=== PATIENT | male | born 1985 | race Caucasian/White ===

== ENCOUNTER 2022-05-29 02:45 | Emergency (ER) | payer OTHER ==
[2022-05-29 02:54] VITALS: BP 155/78; PULSE 111; RESP 22; TEMP 98.2
--- NOTE | 2022-05-29 02:58 | ED ---
Skin/Abscess/FB HPI - General Chief complaint: Skin/Abscess/Foreign Body Stated complaint: Abscess on left leg Time Seen by Provider: 05/29/22 02:57 Source: patient, RN notes reviewed Mode of arrival: ambulatory Limitations: no limitations - History of Present Illness Initial comments: Patient presents with a boil on his left lower leg which has been there for several days. Patient also has a healing boil on the medial aspect of the leg. Patient denying any fever. Denies any chills. No other symptomology. Patient has not been getting any drainage but has been treating at home with warm compresses. No known history of MRSA. No headache, no fever or chills, no changes in vision or hearing, no sore throat or difficulty with speech, no neck pain, no chest pain or shortness of breath, no abdominal pain, no nausea or vomiting, no changes in urination or bowel movements, no numbness or tingling, no extremity pain Past medical, surgical, social, and family history reviewed. MD complaint: abscess/boil - Related Data Previous Rx's Medication Instructions Recorded Sulfamethox-Tmp 800-160Mg [Bactrim 1 tab PO Q12HR #20 tab 05/29/22 DS 800-160 mg] Allergies Allergy/AdvReac Type Severity Reaction Status Date / Time No Known Allergies Allergy Verified 05/29/22 02:54 Review of Systems ROS Statement: Those systems with pertinent positive or pertinent negative responses have been documented in the HPI. ROS Other: All systems not noted in ROS Statement are negative. Past Medical History Past Medical History: Seizure Disorder History of Any Multi-Drug Resistant Organisms: None Reported Past Surgical History: No Surgical Hx Reported Past Psychological History: No Psychological Hx Reported Smoking Status: Current every day smoker Past Alcohol Use History: Occasional Past Drug Use History: Marijuana General Exam Limitations: no limitations General appearance: alert, in no apparent distress Head exam: Present: atraumatic, normocephalic, normal inspection Eye exam: Present: normal appearance, PERRL, EOMI. Absent: scleral icterus, conjunctival injection, periorbital swelling ENT exam: Present: normal exam, mucous membranes moist Neck exam: Present: normal inspection. Absent: tenderness, meningismus, lymphadenopathy Respiratory exam: Present: normal lung sounds bilaterally. Absent: respiratory distress, wheezes, rales, rhonchi, stridor Cardiovascular Exam: Present: regular rate (88 bpm by auscultation and radial pulse), normal rhythm, normal heart sounds. Absent: systolic murmur, diastolic murmur, rubs, gallop, clicks GI/Abdominal exam: Present: soft, normal bowel sounds. Absent: distended, tenderness, guarding, rebound, rigid Extremities exam: Present: full ROM, normal capillary refill. Absent: normal inspection (Patient has a small, 2 cm diameter abscess to the anterior aspect of his left lower leg with no break in skin integrity. Indurated. Smaller area to the medial aspect. No current drainage. No lymphangitis. No surrounding cellulitis.), tenderness, pedal edema, joint swelling, calf tenderness Back exam: Present: normal inspection Neurological exam: Present: alert, oriented X3, CN II-XII intact Psychiatric exam: Present: normal affect, normal mood Skin exam: Present: warm, dry, intact, normal color. Absent: rash Course Vital Signs 05/29/22 02:50 Temperature 98.2 F Pulse Rate 111 H Respiratory 22 Rate Blood Pressure 155/78 O2 Sat by Pulse 97 Oximetry Medical Decision Making - Medical Decision Making Small abscess to the lower leg which will likely require antibiotics and warm compresses only. Bactrim DS ordered. Patient was told to return to the ER for any signs or symptoms worsen. Told to return immediately if any other problems arise. All questions answered. Treatment plan discussed. Patient in agreement Every effort has been made to ensure accuracy of this dictation. However, due to the limitations of electronic medical records and dictation devices, errors in charting still occur. Patient did not appear to be systemically ill. Supervising physician, Dr. Lewis Disposition Clinical Impression: Abscess of leg without foot, left Disposition: HOME SELF-CARE Condition: Good Instructions (If sedation given, give patient instructions): Abscess (ED) Additional Instructions: Warm compresses for 10-15 minutes at a time 4 times daily. Take antibiotics as directed. Follow-up with your regular physician as directed. Return to the ER immediately if any symptoms worsen, new symptoms arise, or any other problems develop. Prescriptions: Sulfamethox-Tmp 800-160Mg [Bactrim DS 800-160 mg] 1 tab PO Q12HR #20 tab Is patient prescribed a controlled substance at d/c from ED?: No Referrals: Iglesia Matthews MD [REFERRING] - 05/31/22 Time of Disposition: 03:06
[2022-05-29] MEDS ORDERED: SULFAMETH-TMP DS STARTER PACK 2 TAB BTL PO STA (03:04)
== END 2022-05-29 03:27 | disposition home or self-care (01) ==
LOC: EC 02:45
DX: L02.416 Cutaneous abscess of left lower limb (principal); F17.200 Nicotine dependence, unspecified, uncomplicated; F12.90 Cannabis use, unspecified, uncomplicated
CPT/HCPCS: 99282

== ENCOUNTER 2025-01-30 04:55 | Emergency (ER) | payer OTHER ==
[2025-01-30 05:10] VITALS: BP 144/91; PULSE 82; RESP 22; TEMP 97.8
--- NOTE | 2025-01-30 06:10 | ED ---
General Adult HPI - General Chief complaint: Abdominal Pain Stated complaint: abd pain,constipation Time Seen by Provider: 01/30/25 06:03 Source: patient, RN notes reviewed Mode of arrival: ambulatory Limitations: no limitations - History of Present Illness Initial comments: 39-year-old male to the emergency department for evaluation of upper abdominal pain. Patient states that this started 4 days ago. He notes that the pain is in the epigastric and right upper quadrant. He reports it is an aching pain with no radiation. He does note that he has been dealing with constipation for the past 1 week as well. He denies any known fever, chills. Admits to nausea and vomiting. Denies any prior abdominal surgeries. Denies any significant past medical history. - Related Data Previous Rx's Medication Instructions Recorded Sulfamethox-Tmp 800-160Mg [Bactrim 1 tab PO Q12HR #20 tab 05/29/22 DS 800-160 mg] Allergies Allergy/AdvReac Type Severity Reaction Status Date / Time No Known Allergies Allergy Verified 01/30/25 05:10 Review of Systems ROS Statement: Those systems with pertinent positive or pertinent negative responses have been documented in the HPI. ROS Other: All systems not noted in ROS Statement are negative. Past Medical History Past Medical History: Seizure Disorder History of Any Multi-Drug Resistant Organisms: None Reported Past Surgical History: No Surgical Hx Reported Past Psychological History: No Psychological Hx Reported Smoking Status: Current every day smoker Past Alcohol Use History: Occasional Past Drug Use History: Marijuana General Exam Limitations: no limitations General appearance: alert, in no apparent distress Head exam: Present: atraumatic, normocephalic, normal inspection Eye exam: Present: normal appearance, PERRL, EOMI. Absent: scleral icterus, conjunctival injection, periorbital swelling ENT exam: Present: normal exam, mucous membranes moist Respiratory exam: Present: normal lung sounds bilaterally. Absent: respiratory distress, wheezes, rales, rhonchi, stridor Cardiovascular Exam: Present: regular rate, normal rhythm, normal heart sounds. Absent: systolic murmur, diastolic murmur, rubs, gallop, clicks GI/Abdominal exam: Present: soft, tenderness (Epigastric and right upper quadrant), normal bowel sounds. Absent: distended, guarding, rebound, rigid Extremities exam: Present: normal inspection, full ROM, normal capillary refill. Absent: tenderness, pedal edema, joint swelling, calf tenderness Back exam: Present: normal inspection Neurological exam: Present: alert, oriented X3 Psychiatric exam: Present: normal affect, normal mood Skin exam: Present: warm, dry, intact, normal color. Absent: rash Course Vital Signs 01/30/25 05:06 Temperature 97.8 F Pulse Rate 82 Respiratory 22 Rate Blood Pressure 144/91 O2 Sat by Pulse 97 Oximetry Medical Decision Making - Medical Decision Making Was pt. sent in by a medical professional or institution (, PA, LICENSED OCCUPATIONAL THERAPY ASSISTANT, urgent care, hospital, or [place] health care facility...) When possible be specific @ -No Did you speak to anyone other than the patient for history (EMS, parent, family, police, friend...)? What history was obtained from this source @ -No Did you review nursing and triage notes (agree or disagree)? Why? @ -I reviewed and agree with nursing and triage notes Were old charts reviewed (outside hosp., previous admission, EMS record, old EKG, old radiological studies, urgent care reports/EKG's, [place] health care facility records)? Report findings @ -No old charts were reviewed Differential Diagnosis (chest pain, altered mental status, abdominal pain women, abdominal pain men, vaginal bleeding, weakness, fever, dyspnea, syncope, heada raysa, dizziness, GI bleed, back pain, seizure, CVA, palpatations, mental health, musculoskeletal)? @ -Differential Abdominal Pain Men: Appendicitis, cholecystitis, diverticulosis, ischemic bowel, pancreatitis, hepatitis, UTI, gastroenteritis, AAA, incarcerated hernia, bowel obstruction, constipation, inflammatory bowel, hepatitis, peptic ulcer disease, splenic infarction, perforated viscus, testicular torsion, this is not meant to be an all-inclusive list EKG interpreted by me (3pts min.). @ -None X-rays interpreted by me (1pt min.). @ -None done CT interpreted by me (1pt min.). @ -CT abdomen pelvis reveals mild hepatomegaly and borderline splenomegaly without evidence for acute process U/S interpreted by me (1pt. min.). @ -None done What testing was considered but not performed or refused? (CT, X-rays, U/S, labs)? Why? @ -None What meds were considered but not given or refused? Why? @ -None Did you discuss the management of the patient with other professionals (professionals i.e. , PA, LICENSED OCCUPATIONAL THERAPY ASSISTANT, lab, RT, psych nurse, social media content manager, staffing clerk, teacher, chief knowledge officer, piano case and bench assembler)? Give summary @ -No Was smoking cessation discussed for >3mins.? @ -No Was critical care preformed (if so, how long)? @ -No Were there social determinants of health that impacted care today? How? (Homelessness, low income, unemployed, alcoholism, drug addiction, transportation, low edu. Level, literacy, decrease access to med. care, prison, rehab)? @ -No Was there de-escalation of care discussed even if they declined (Discuss DNR or withdrawal of care, Hospice)? DNR status @ -No What co-morbidities impacted this encounter? (DM, HTN, Smoking, COPD, CAD, Cancer, CVA, ARF, Chemo, Hep., AIDS, mental health diagnosis, sleep apnea, morbid obesity)? @ -None Was patient admitted / discharged? Hospital course, mention meds given and route, prescriptions, significant lab abnormalities, going to OR and other pertinent info. @ -Patient left AGAINST MEDICAL ADVICE patient presented emergency department for evaluation of abdominal pain. Laboratory studies obtained revealing no significant leukocytosis, hemoglobin stable; CMP is nonactionable at this time CT abdomen pelvis reveals mild hepatomegaly and borderline splenomegaly without evidence for acute process. Patient left AGAINST MEDICAL ADVICE prior to the results of the CT scan. Case discussed with Dr. Richards Undiagnosed new problem with uncertain prognosis? @ -No Drug Therapy requiring intensive monitoring for toxicity (Heparin, Nitro, Insulin, Cardizem)? @ -No Were any procedures done? @ -No Diagnosis/symptom? @ -Abdominal pain Acute, or Chronic, or Acute on Chronic? @ -Acute Uncomplicated (without systemic symptoms) or Complicated (systemic symptoms)? @ -Uncomplicated Side effects of treatment? @ -No Exacerbation, Progression, or Severe Exacerbation? @ -No Poses a threat to life or bodily function? How? (Chest pain, USA, IA, pneumonia, PE, COPD, DKA, ARF, appy, cholecystitis, CVA, Diverticulitis, Homicidal, Suicidal, threat to staff... and all critical care pts) @ -No - Lab Data Result diagrams: 01/30/25 06:15 01/30/25 06:15 Lab Results 01/30/25 01/30/25 01/30/25 Range/Units 06:15 06:15 06:15 WBC 6.47 (4.50-10.00) 10*3/uL RBC 4.76 (4.40-5.60) 10*6/uL Hgb 14.3 (13.0-17.0) g/dL Hct 41.1 (39.6-50.0) % MCV 86.3 (80.0-97.0) fL MCH 30.0 (27.0-32.0) pg MCHC 34.8 (32.0-37.0) g/dL Plt Count 203 (140-440) 10*3/uL MPV 9.5 (9.5-12.2) fL Immature Gran % (Auto) 0 % Neutrophils % 68.4 % Lymphocytes % 20.2 % Monocytes % 7.7 % Eosinophils % 3.4 % Basophils % 0.3 % Immature Gran # 0.00 (0.00-0.04) 10*3/uL Neutrophils # 4.42 (1.80-7.70) 10*3/uL Lymphocytes # 1.31 (0.90-5.00) 10*3/uL Monocytes # 0.50 (0.20-1.00) 10*3/uL Eosinophils # 0.22 (0.04-0.35) 10*3/uL Basophils # 0.02 (0.00-0.10) 10*3/uL Sodium 136 L (137-145) mmol/L Potassium 3.5 (3.5-5.1) mmol/L Chloride 104 (98-107) mmol/L Carbon Dioxide 24 (22-30) mmol/L Anion Gap 8 mmol/L BUN 11 (9-20) mg/dL Creatinine 0.76 (0.66-1.25) mg/dL Est GFR (CKD-EPI)AfAm >90 (>60 ml/min/1.73 sqM) Est GFR (CKD-EPI)NonAf >90 (>60 ml/min/1.73 sqM) Glucose 101 H (74-99) mg/dL Plasma Lactic Acid [place] 0.8 (0.7-2.0) mmol/L Calcium 9.5 (8.4-10.2) mg/dL Total Bilirubin 1.1 (0.2-1.3) mg/dL AST 26 (17-59) U/L ALT 29 (4-49) U/L Alkaline Phosphatase 114 (38-126) U/L Total Protein 6.9 (6.3-8.2) g/dL Albumin 4.3 (3.5-5.0) g/dL Amylase 39 (30-110) U/L Lipase 84 (23-300) U/L Disposition Clinical Impression: Left against medical advice, Abdominal pain Disposition: LEFT AGAINST MEDICAL ADVICE Condition: Stable Is patient prescribed a controlled substance at d/c from ED?: No Referrals: None,Stated [Primary Care Provider] - 1-2 days
[2025-01-30 06:26] LABS: Basophils # (A) 0.02 10*3/uL (0.00-0.10); Basophils % (A) 0.3 %; Eosinophils # (A) 0.22 10*3/uL (0.04-0.35); Eosinophils % (A) 3.4 %; HCT 41.1 % (39.6-50.0); HGB 14.3 g/dL (13.0-17.0); Lymphocytes # (A) 1.31 10*3/uL (0.90-5.00); Lymphocytes % (A) 20.2 %; MCHC 34.8 g/dL (32.0-37.0); MCV 86.3 fL (80.0-97.0); Mean Platelet Volume 9.5 fL (9.5-12.2); Monocytes % (A) 7.7 %; Neutrophils # (A) 4.42 10*3/uL (1.80-7.70); Neutrophils % (A) 68.4 %; Platelet Count 203 10*3/uL (140-440); RBC 4.76 10*6/uL (4.40-5.60); WBC 6.47 10*3/uL (4.50-10.00)
[2025-01-30] MEDS: KETOROLAC 15 MG/ML 1 ML VIAL IVP STA (06:33)
[2025-01-30] MEDS: ONDANSETRON 4 MG/2 ML VIAL IVP STA (06:33)
[2025-01-30] MEDS: LACTATED RINGERS 1,000 ML IV ONE (06:37)
[2025-01-30 06:44] LABS: ALT 29 U/L (4-49); AST 26 U/L (17-59); African American GFR (CKD) >90 (>60 ml/min/1.73 sqM); Albumin 4.3 g/dL (3.5-5.0); Alkaline Phosphatase 114 U/L (38-126); Amylase 39 U/L (30-110); Anion Gap 8 mmol/L; Blood Urea Nitrogen 11 mg/dL (9-20); Calcium 9.5 mg/dL (8.4-10.2); Carbon Dioxide 24 mmol/L (22-30); Chloride 104 mmol/L (98-107); Glucose 101 mg/dL (74-99); Lipase 84 U/L (23-300); Non-African American GFR(CKD) >90 (>60 ml/min/1.73 sqM); Potassium 3.5 mmol/L (3.5-5.1); Sodium 136 mmol/L (137-145); Total Bilirubin 1.1 mg/dL (0.2-1.3); Total Protein 6.9 g/dL (6.3-8.2)
--- NOTE | 2025-01-30 07:37 | CT ---
EXAMINATION TYPE: CT abdomen pelvis w con DATE OF EXAM: 01/30/2025 COMPARISON: None CLINICAL INDICATION: Male, 39 years old with history of abdominal pain; PHH, abd pain TECHNIQUE: Performed without Oral Contrast and with IV Contrast, patient injected with 100 mL of Isovue 300. CT DLP: 1072.[address] CTDI: mGy Automated exposure control for dose reduction was used. FINDINGS: The lung bases are clear. The gallbladder is normal without distention, wall thickening, pericholecystic fluid or gallstones. T here is no biliary ductal dilatation. There is mild hepatomegaly and borderline splenomegaly. There are no focal masses within the liver, p ancreas, spleen or adrenal glands. There is no solid renal mass or hydronephrosis and there is homogeneous contrast enhancement of the r enal parenchyma. The caliber the abdominal aorta is normal is no retroperitoneal adenopathy or hemorr dora. The bowel loops are normal in caliber and there is no evidence of dilatation or obstruction. No infla mmatory changes are identified in the bowel wall or mesentery. There is no free intraperitoneal air or fluid. No pelvic mass, free fluid, abscess or adenopathy. The osseous structures and soft tissues are intact. IMPRESSION: Mild hepatomegaly and borderline splenomegaly with no other significant abnormality seen. [facility], , 01/30/2025 7:35 AM
[2025-01-30] MEDS: MORPHINE SULFATE 4 MG/ML SYRINGE IVP STA (07:39)
== END 2025-01-30 08:06 | disposition left against medical advice (07) ==
LOC: EC 04:55
DX: R10.13 Epigastric pain (principal); F17.200 Nicotine dependence, unspecified, uncomplicated; Z53.29 Procedure and treatment not carried out because of patient's decision for other reasons
CPT/HCPCS: 36415; 80053; 82150; 83605; 83690; 85025; 74177; 99284; 96374; 96375 ×2; 96361; J2270; J2405; J1885; Q9967

== ENCOUNTER 2025-02-05 22:54 | Emergency (ER) | payer OTHER ==
[2025-02-05] MEDS: LORazepam 2 MG/ML INJ IM STA (23:22)
[2025-02-05] MEDS: HALOPERIDOL LACTATE 5 MG/ML 1 ML VIAL IM STA (23:22)
[2025-02-05] MEDS: LORazepam 2 MG/ML INJ IV STA (23:24)
[2025-02-05] MEDS: diphenhydrAMINE 50 MG/ML 1 ML VIAL IVP STA (23:27)
[2025-02-05 23:42] LABS: Appearance,Urine Clear (Clear); Bilirubin,Urine Negative (Negative); Blood,Urine Negative (Negative); Color,Urine Colorless; Glucose,Urine (UA) Negative (Negative); Ketones,Urine Negative (Negative); Leukocyte Esterase,Urine Negative (Negative); Nitrite,Urine Negative (Negative); PH, Urine 5.5 (5.0-8.0); Protein,Urine Negative (Negative); Specific Gravity,Urine 1.004 (1.001-1.035); Urobilinogen,Urine <2.0 mg/dL (<2.0)
[2025-02-06 00:05] LABS: Amphetamine Screen,Urine Not Detected (NotDetected); Barbiturate Screen,Urine Not Detected (NotDetected); Benzodiazepines Screen,Urine Not Detected (NotDetected); Cocaine Screen,Urine Not Detected (NotDetected); Methadone Screen, Urine Not Detected (NotDetected); Opiate Screen,Urine Not Detected (NotDetected); Oxycodone Screen, Urine Not Detected (NotDetected); Phencyclidine Screen,Urine Not Detected (NotDetected); Tricyclic Antidepressant,Urine Not Detected (NotDetected); Urn Cannabinoid Scrn Detected (NotDetected)
--- NOTE | 2025-02-06 00:08 | ED ---
General Adult HPI - General Source: patient, police, EMS, RN notes reviewed, old records reviewed Mode of arrival: EMS <Kofi Richards - Last Filed: 02/06/25 02:37> <Hafsa Cobos - Last Filed: 02/06/25 13:35> - General Chief complaint: Alcohol Stated complaint: ETOH Time Seen by Provider: 02/05/25 22:54 - History of Present Illness Initial comments: Patient is a 39-year-old male who presents emergency department being petitioned by police. History of polysubstance abuse and does admit to using mushrooms and alcohol this evening. Police completed the petition. States that the patient stated that he was going to kill his neighbors and that he was going to shoot a police guard and has been very aggressive and screaming towards police. Patient is aggressive upon arrival here. Is yelling and is unwilling to answer any questions. Keeps stating he will attempt to hurt everyone that comes near him, is making threats towards everyone. Presents for further evaluation at this time. (Kfoi Richards) - Related Data Previous Rx's Medication Instructions Recorded Sulfamethox-Tmp 800-160Mg [Bactrim 1 tab PO Q12HR #20 tab 05/29/22 DS 800-160 mg] Allergies Allergy/AdvReac Type Severity Reaction Status Date / Time No Known Allergies Allergy Verified 02/05/25 23:00 Review of Systems ROS Other: All systems not noted in ROS Statement are negative. <Kofi Richards - Last Filed: 02/06/25 02:37> ROS Other: All systems not noted in ROS Statement are negative. <Hafsa Cobos - Last Filed: 02/06/25 13:35> ROS Statement: Those systems with pertinent positive or pertinent negative responses have been documented in the HPI. Past Medical History Past Medical History: Seizure Disorder History of Any Multi-Drug Resistant Organisms: None Reported Past Surgical History: No Surgical Hx Reported Past Psychological History: No Psychological Hx Reported Smoking Status: Current every day smoker Past Alcohol Use History: Occasional Past Drug Use History: Marijuana <Kofi Richards - Last Filed: 02/06/25 02:37> General Exam <Kofi Richards - Last Filed: 02/06/25 02:37> - General Exam Comments Initial Comments: General: Agitated, aggressive. HEAD: Normal with no signs of head trauma. EYES: EOMI ENT: Hearing grossly intact, normal oropharynx. RESPIRATORY: Clear breath sounds bilaterally. No wheezes, rales, or rhonchi. C/V: Regular rate and rhythm. S1 and S2 auscultated, peripheral pulses 2+ and intact throughout ABD: Abd is soft, nontender, nondistended EXT: Normal range of motion, no obvious deformity SKIN: No rashes or lesions observed on exposed skin. NEURO: Alert and oriented, moving all 4 extremities without any issue. Relatively uncooperative with any form of exam. (Kofi Richards) Course Vital Signs 02/06/25 02/06/25 02/06/25 00:45 03:57 10:40 Temperature 98.4 F 97.8 F Pulse Rate 74 66 78 Respiratory 18 18 Rate Blood Pressure 110/68 109/70 138/75 O2 Sat by Pulse 99 100 98 Oximetry Procedures - Restraint - Face to Face Restraint Occurrence 1 Patient's Immediate Situation: Endangers self safety, Endangers others' safety, Endangers staff safety, Violent behavior Patient's Reaction to the Intervention: Uncooperative, Hostile Patient's Medical & Behavioral Condition: Awake, Alert Need to Continue or Terminate Restraint or Seclusion: Continue Face to Face Eval of Restraint Date: 02/05/25 Face to Face Eval of Restraint Time: 23:10 <Kofi Richards - Last Filed: 02/06/25 02:37> Medical Decision Making - Lab Data Result diagrams: 02/06/25 00:54 02/06/25 00:54 <Kofi Richards - Last Filed: 02/06/25 02:37> - Lab Data Result diagrams: 02/06/25 00:54 02/06/25 00:54 <Hafsa Cobos - Last Filed: 02/06/25 13:35> - Medical Decision Making Was pt. sent in by a medical professional or institution (, PA, JUNIOR LOAN PROCESSOR, urgent care, hospital, or snf...) When possible be specific @ -No Did you speak to anyone other than the patient for history (EMS, parent, family, police, friend...)? What history was obtained from this source @ -Spoke with police who brought the patient to the ER for evaluation for the agitation and petitioned him. Did you review nursing and triage notes (agree or disagree)? Why? @ -I reviewed and agree with nursing and triage notes Were old charts reviewed (outside hosp., previous admission, EMS record, old EKG, old radiological studies, urgent care reports/EKG's, snf records)? Report findings @ -Seen earlier this month, January 2025 for abdominal pain and patient left AGAINST MEDICAL ADVICE at that time. Workup at that time relatively unremarkable. CT imaging negative for any obvious acute process. Differential Diagnosis (chest pain, altered mental status, abdominal pain women, abdominal pain men, vaginal bleeding, weakness, fever, dyspnea, syncope, headache, dizziness, GI bleed, back pain, seizure, CVA, palpatations, mental health, musculoskeletal)? @ -Differential Mental Health Depression, anxiety, bipolar, psychosis, schizophrenia, borderline personality, situational depression, adjustment disorder, behavioral disorder, brain tumor, malingering, substance abuse, encephalopathy, medication reaction, dementia, hypothyroidism, degenerative neurologic disorder, lupus.... This is not meant to be all-inclusive list. EKG interpreted by me (3pts min.). @ -As above X-rays interpreted by me (1pt min.). @ -None done CT interpreted by me (1pt min.). @ -CT brain reveals no obvious acute intracranial process. U/S interpreted by me (1pt. min.). @ -None done What testing was considered but not performed or refused? (CT, X-rays, U/S, labs)? Why? @ -None What meds were considered but not given or refused? Why? @ -None Did you discuss the management of the patient with other professionals (professionals i.e. , PA, JUNIOR LOAN PROCESSOR, lab, RT, psych nurse, pediatric social worker, communications planner, teacher, digital marketing officer, case therapist)? Give summary @ -No Was smoking cessation discussed for >3mins.? @ -No Was critical care preformed (if so, how long)? @ -Yes, 33 minutes Were there social determinants of health that impacted care today? How? (Homelessness, low income, unemployed, alcoholism, drug addiction, transportation, low edu. Level, literacy, decrease access to med. care, custodial, rehab)? @ -No Was there de-escalation of care discussed even if they declined (Discuss DNR or withdrawal of care, Hospice)? DNR status @ -No What co-morbidities impacted this encounter? (DM, HTN, Smoking, COPD, CAD, Cancer, CVA, ARF, Chemo, Hep., AIDS, mental health diagnosis, sleep apnea, morbid obesity)? @ -None Was patient admitted / discharged? Hospital course, mention meds given and route, prescriptions, significant lab abnormalities, going to OR and other pert inent info. @ -Patient presents aggressive, yelling threats and making threatening gestures and statements towards everyone, police hospital staff nursing staff. He is a danger to himself as well as others at this time. He appears under the influence. Patient was placed in restraints due to this. Patient administered IV Ativan, Haldol, Benadryl for agitation. Patient will receive IV fluids and we will obtain general workup. Patient required additional Ativan prior to removal of his restraints. UDS positive for marijuana. Serum alcohol level of 119. Remainder the labs unremarkable.CT imaging negative for any obvious acute intracranial process. Patient will be sober at 3 AM. At this time, patient is medically cleared for evaluation by psychiatry. Disposition pending psychiatric evaluation. EPS notified of the consult. Undiagnosed new problem with uncertain prognosis? @ -No Drug Therapy requiring intensive monitoring for toxicity (Heparin, Nitro, Insulin, Cardizem)? @ -No Were any procedures done? @ -No Diagnosis/symptom? @ -Agitation, alcohol intoxication, encounter for psychiatric evaluation Acute, or Chronic, or Acute on Chronic? @ -Acute (Kofi Richards) - Lab Data Lab Results 02/05/25 02/05/25 02/06/25 Range/Units 22:57 22:57 00:54 WBC 7.07 (4.50-10.00) 10*3/uL RBC 4.44 (4.40-5.60) 10*6/uL Hgb 13.5 (13.0-17.0) g/dL Hct 38.3 L (39.6-50.0) % MCV 86.3 (80.0-97.0) fL MCH 30.4 (27.0-32.0) pg MCHC 35.2 (32.0-37.0) g/dL Plt Count 247 (140-440) 10*3/uL MPV 9.6 (9.5-12.2) fL Immature Gran % (Auto) 0.4 % Neutrophils % 48.5 % Lymphocytes % 36.5 % Monocytes % 8.1 % Eosinophils % 6.1 % Basophils % 0.4 % Immature Gran # 0.03 (0.00-0.04) 10*3/uL Neutrophils # 3.43 (1.80-7.70) 10*3/uL Lymphocytes # 2.58 (0.90-5.00) 10*3/uL Monocytes # 0.57 (0.20-1.00) 10*3/uL Eosinophils # 0.43 H (0.04-0.35) 10*3/uL Basophils # 0.03 (0.00-0.10) 10*3/uL Sodium (137-145) mmol/L Potassium (3.5-5.1) mmol/L Chloride (98-107) mmol/L Carbon Dioxide (22-30) mmol/L Anion Gap mmol/L BUN (9-20) mg/dL Creatinine (0.66-1.25) mg/dL Est GFR (CKD-EPI)AfAm (>60 ml/min/1.73 sqM) Est GFR (CKD-EPI)NonAf (>60 ml/min/1.73 sqM) Glucose (74-99) mg/dL Calcium (8.4-10.2) mg/dL Total Bilirubin (0.2-1.3) mg/dL AST (17-59) U/L ALT (4-49) U/L Alkaline Phosphatase (38-126) U/L Total Protein (6.3-8.2) g/dL Albumin (3.5-5.0) g/dL Urine Color Colorless Urine Appearance Clear (Clear) Urine pH 5.5 (5.0-8.0) Ur Specific [place] 1.004 (1.001-1.035) Urine Protein Negative (Negative) Urine Glucose (UA) Negative (Negative) Urine Ketones Negative (Negative) Urine Blood Negative (Negative) Urine Nitrite Negative (Negative) Urine Bilirubin Negative (Negative) Urine Urobilinogen <2.0 (<2.0) mg/dL Ur Leukocyte Esterase Negative (Negative) Salicylates mg/dL Urine Opiates Screen Not Detected (NotDetected) Ur Oxycodone Screen Not Detected (NotDetected) Urine Methadone Screen Not Detected (NotDetected) Acetaminophen ug/mL Ur Barbiturates Screen Not Detected (NotDetected) U Tricyclic Antidepress Not Detected (NotDetected) Ur Phencyclidine Scrn Not Detected (NotDetected) Ur Amphetamines Screen Not Detected (NotDetected) U Methamphetamines Scrn Not Detected (NotDetected) U Benzodiazepines Scrn Not Detected (NotDetected) Urine Cocaine Screen Not Detected (NotDetected) U Marijuana (THC) Screen Detected H (NotDetected) Serum Alcohol mg/dL SARS-CoV-2 (PCR) (Not Detectd) 02/06/25 02/06/25 Range/Units 00:54 00:54 WBC (4.50-10.00) 10*3/uL RBC (4.40-5.60) 10*6/uL Hgb (13.0-17.0) g/dL Hct (39.6-50.0) % MCV (80.0-97.0) fL MCH (27.0-32.0) pg MCHC (32.0-37.0) g/dL Plt Count (140-440) 10*3/uL MPV (9.5-12.2) fL Immature Gran % (Auto) % Neutrophils % % Lymphocytes % % Monocytes % % Eosinophils % % Basophils % % Immature Gran # (0.00-0.04) 10*3/uL Neutrophils # (1.80-7.70) 10*3/uL Lymphocytes # (0.90-5.00) 10*3/uL Monocytes # (0.20-1.00) 10*3/uL Eosinophils # (0.04-0.35) 10*3/uL Basophils # (0.00-0.10) 10*3/uL Sodium 142 (137-145) mmol/L Potassium 4.0 (3.5-5.1) mmol/L Chloride 106 (98-107) mmol/L Carbon Dioxide 21 L (22-30) mmol/L Anion Gap 15 mmol/L BUN 6 L (9-20) mg/dL Creatinine 0.84 (0.66-1.25) mg/dL Est GFR (CKD-EPI)AfAm >90 (>60 ml/min/1.73 sqM) Est GFR (CKD-EPI)NonAf >90 (>60 ml/min/1.73 sqM) Glucose 88 (74-99) mg/dL Calcium 9.8 (8.4-10.2) mg/dL Total Bilirubin 0.4 (0.2-1.3) mg/dL AST 40 (17-59) U/L ALT 40 (4-49) U/L Alkaline Phosphatase 101 (38-126) U/L Total Protein 6.6 (6.3-8.2) g/dL Albumin 4.2 (3.5-5.0) g/dL Urine Color Urine Appearance (Clear) Urine pH (5.0-8.0) Ur Specific [place] (1.001-1.035) Urine Protein (Negative) Urine Glucose (UA) (Negative) Urine Ketones (Negative) Urine Blood (Negative) Urine Nitrite (Negative) Urine Bilirubin (Negative) Urine Urobilinogen (<2.0) mg/dL Ur Leukocyte Esterase (Negative) Salicylates <1.0 mg/dL Urine Opiates Screen (NotDetected) Ur Oxycodone Screen (NotDetected) Urine Methadone Screen (NotDetected) Acetaminophen <10.0 ug/mL Ur Barbiturates Screen (NotDetected) U Tricyclic Antidepress (NotDetected) Ur Phencyclidine Scrn (NotDetected) Ur Amphetamines Screen (NotDetected) U Methamphetamines Scrn (NotDetected) U Benzodiazepines Scrn (NotDetected) Urine Cocaine Screen (NotDetected) U Marijuana (THC) Screen (NotDetected) Serum Alcohol 119 mg/dL SARS-CoV-2 (PCR) Not Detected (Not Detectd) Disposition <Kofi Richards - Last Filed: 02/06/25 02:37> Is patient prescribed a controlled substance at d/c from ED?: No Time of Disposition: 13:35 <Hafsa Cobos - Last Filed: 02/06/25 13:35> Clinical Impression: Alcoholic intoxication, Encounter for psychiatric assessment, Agitation Disposition: HOME SELF-CARE Condition: Stable Instructions (If sedation given, give patient instructions): Alcohol Intoxication (ED) Referrals: None,Stated [Primary Care Provider] - 1-2 days
[2025-02-06] MEDS: SODIUM CHLORIDE 0.9% 1,000 ML IV ONE (00:45)
[2025-02-06] MEDS: LORazepam 2 MG/ML INJ IV STA ×2 (00:45→02:00)
[2025-02-06 01:22] LABS: Basophils # (A) 0.03 10*3/uL (0.00-0.10); Basophils % (A) 0.4 %; Eosinophils # (A) 0.43 10*3/uL (0.04-0.35); Eosinophils % (A) 6.1 %; HCT 38.3 % (39.6-50.0); HGB 13.5 g/dL (13.0-17.0); Lymphocytes # (A) 2.58 10*3/uL (0.90-5.00); Lymphocytes % (A) 36.5 %; MCH 30.4 pg (27.0-32.0); MCHC 35.2 g/dL (32.0-37.0); MCV 86.3 fL (80.0-97.0); Mean Platelet Volume 9.6 fL (9.5-12.2); Monocytes # (A) 0.57 10*3/uL (0.20-1.00); Monocytes % (A) 8.1 %; Neutrophils # (A) 3.43 10*3/uL (1.80-7.70); Neutrophils % (A) 48.5 %; Platelet Count 247 10*3/uL (140-440); RBC 4.44 10*6/uL (4.40-5.60); RDW 12.5 % (11.5-14.5); WBC 7.07 10*3/uL (4.50-10.00)
[2025-02-06 01:25] LABS: ALT 40 U/L (4-49); AST 40 U/L (17-59); Acetaminophen <10.0 ug/mL; African American GFR (CKD) >90 (>60 ml/min/1.73 sqM); Albumin 4.2 g/dL (3.5-5.0); Alkaline Phosphatase 101 U/L (38-126); Anion Gap 15 mmol/L; Blood Urea Nitrogen 6 mg/dL (9-20); Calcium 9.8 mg/dL (8.4-10.2); Carbon Dioxide 21 mmol/L (22-30); Chloride 106 mmol/L (98-107); Glucose 88 mg/dL (74-99); Non-African American GFR(CKD) >90 (>60 ml/min/1.73 sqM); Salicylate <1.0 mg/dL; Sodium 142 mmol/L (137-145); Total Bilirubin 0.4 mg/dL (0.2-1.3); Total Protein 6.6 g/dL (6.3-8.2)
[2025-02-06 01:45] LABS: Alcohol 119 mg/dL
--- NOTE | 2025-02-06 02:18 | CT ---
EXAM: CT Head Without Intravenous Contrast CLINICAL HISTORY: ITS.REASON CT Reason: agitation TECHNIQUE: Axial computed tomography images of the head/brain without intravenous contrast. CTDI is 49.2 mGy and DLP is 1307.4 mGy-cm. This CT exam was performed using one or more of the following dose reduction techniques: automated exposure control, adjustment of the mA and/or kV according to patient size, and/or use of iterative reconstruction technique. COMPARISON: No relevant prior studies available. FINDINGS: No acute intracranial hemorrhage. No midline shift or mass effect. The territorial araiza-white matter differentiation is maintained throughout. The ventricles and sulci are commensurate with age. The visualized orbits appear grossly unremarkable. The calvarium is intact. The visualized paranasal sinuses and mastoid air cells are grossly clear. IMPRESSION: No acute intracranial hemorrhage, midline shift, or mass effect.
[2025-02-06 03:58] VITALS: RESP 18
[2025-02-06 10:42] VITALS: TEMP 97.8
[2025-02-06] MEDS: NICOTINE 14MG/24HR PATCH TRANSDERM STA (11:45)
[2025-02-06 14:59] VITALS: BP 137/81; PULSE 91
== END 2025-02-06 15:01 | disposition home or self-care (01) ==
LOC: EC 22:54
DX: F10.129 Alcohol abuse with intoxication, unspecified (principal); Z04.6 Encounter for general psychiatric examination, requested by authority; R45.1 Restlessness and agitation; F17.200 Nicotine dependence, unspecified, uncomplicated; Z11.52 Encounter for screening for COVID-19; Y90.5 Blood alcohol level of 100-119 mg/100 ml
CPT/HCPCS: 36415; 80053; 85025; 81003; 80306; 80143; 80320; 87635; 80179; 70450; 99291; 96374; 96375; 96376; 96361; 96372; S4990; J2060 ×2; J1200; J1630

== ENCOUNTER 2025-02-07 17:25 | Emergency (ER) | payer OTHER ==
[2025-02-07 17:36] VITALS: BP 151/95; PULSE 79; RESP 20; TEMP 98
--- NOTE | 2025-02-07 17:40 | ED ---
Wound/Laceration HPI - General Chief Complaint: Wound/Laceration Stated Complaint: L hand injury Time Seen by Provider: 02/07/25 17:40 Source: patient, RN notes reviewed Mode of arrival: ambulatory Limitations: no limitations - History of Present Illness Initial Comments: 39-year-old male presenting to the ER via EMS for evaluation of a laceration. Patient states he was attempting to cut open a container of fresh goat's milk for his dog with a razor blade when he accidentally cut his left hand. Patient reports a laceration to his left first interdigital space. He states after injury he noticed a large amount of blood for which he placed compression and contacted 911 for further evaluation. Tetanus is up-to-date. Patient denies limited range of motion or paresthesias to left hand or digits. Patient denies any other injuries or complaints. - Related Data Previous Rx's Medication Instructions Recorded Sulfamethox-Tmp 800-160Mg [Bactrim 1 tab PO Q12HR #20 tab 05/29/22 DS 800-160 mg] Allergies Allergy/AdvReac Type Severity Reaction Status Date / Time No Known Allergies Allergy Verified 02/05/25 23:00 Review of Systems ROS Statement: Those systems with pertinent positive or pertinent negative responses have been documented in the HPI. ROS Other: All systems not noted in ROS Statement are negative. Past Medical History Past Medical History: No Reported History, Seizure Disorder History of Any Multi-Drug Resistant Organisms: None Reported Past Surgical History: No Surgical Hx Reported Past Psychological History: Anxiety, Bipolar, PTSD, Schizophrenia Smoking Status: Current every day smoker Past Alcohol Use History: Occasional Past Drug Use History: Marijuana General Exam Limitations: no limitations General appearance: alert, in no apparent distress Respiratory exam: Present: normal lung sounds bilaterally. Absent: respiratory distress, wheezes, rales, rhonchi, stridor Cardiovascular Exam: Present: regular rate, normal rhythm, normal heart sounds. Absent: systolic murmur, diastolic murmur, rubs, gallop, clicks Extremities exam: Present: normal inspection, full ROM, normal capillary refill (2+ left radial pulse). Absent: tenderness, pedal edema, joint swelling, calf tenderness Neurological exam: Present: alert, oriented X3, CN II-XII intact Psychiatric exam: Present: agitated Skin exam: Present: warm, dry, intact, normal color, other (1 cm laceration to left first interdigital web. no active bleeding) Course Vital Signs 02/07/25 17:31 Temperature 98 F Pulse Rate 79 Respiratory 20 Rate Blood Pressure 151/95 O2 Sat by Pulse 99 Oximetry - Reevaluation(s) Reevaluation #1: 02/07/25 18:10 Patient became increasingly agitated and verbally aggressive/demanding with RN and staff. Security notified. LET in place by RN. Patient reporting let solution and ibuprofen are not aiding in his pain. Patient refusing opioid medication. I attempted to place a suture for which patient refused and become more aggitated. Steri-Strips were placed to close wound. Patient eloped from the ER directly after Steri-Strip placement. Medical Decision Making - Medical Decision Making Was pt. sent in by a medical professional or institution (JIMBO Islas, ENDOSCOPY TECHNICIAN, urgent care, hospital, or skilled nursing...) When possible be specific @ -No Did you speak to anyone other than the patient for history (EMS, parent, family, police, friend...)? What history was obtained from this source @ -No Did you review nursing and triage notes (agree or disagree)? Why? @ -I reviewed and agree with nursing and triage notes Were old charts reviewed (outside hosp., previous admission, EMS record, old EKG, old radiological studies, urgent care reports/EKG's, skilled nursing records)? Report findings @ -Prior ER visits. Patient was evaluated by EPS on 02/06/25 after presenting to the ER escorted by police for evaluation of ETOH and mushroom intoxication. Patient provided with safety plan and outpatient resources. Differential Diagnosis (chest pain, altered mental status, abdominal pain women, abdominal pain men, vaginal bleeding, weakness, fever, dyspnea, syncope, headache, dizziness, GI bleed, back pain, seizure, CVA, palpatations, mental health, musculoskeletal)? @ -Laceration, abrasion, contusion, avulsion, foreign body this list is not meant to be all-inclusive EKG interpreted by me (3pts min.). @ -None done X-rays interpreted by me (1pt min.). @ -None done CT interpreted by me (1pt min.). @ -None done U/S interpreted by me (1pt. min.). @ -None done What testing was considered but not performed or refused? (CT, X-rays, U/S, labs)? Why? @ -None What meds were considered but not given or refused? Why? @ -Lidocaine SQ considered however patient refusing injection. Did you discuss the management of the patient with other professionals (professionals i.e. , PA, ENDOSCOPY TECHNICIAN, lab, RT, psych nurse, web content & social media manager, sports lawyer, teacher, armed custom protection officer, case management social worker)? Give summary @ -No Was smoking cessation discussed for >3mins.? @ -No Was critical care preformed (if so, how long)? @ -No Were there social determinants of health that impacted care today? How? (Homelessness, low income, unemployed, alcoholism, drug addiction, transportation, low edu. Level, literacy, decrease access to med. care, fpc, rehab)? @ -Drug addiction Was there de-escalation of care discussed even if they declined (Discuss DNR or withdrawal of care, Hospice)? DNR status @ -No What co-morbidities impacted this encounter? (DM, HTN, Smoking, COPD, CAD, Cancer, CVA, ARF, Chemo, Hep., AIDS, mental health diagnosis, sleep apnea, morbid obesity)? @ -None Was patient admitted / discharged? Hospital course, mention meds given and route, prescriptions, significant lab abnormalities, going to OR and other pertinent info. @ -39 year old male presenting to the ER via EMS for evaluation of laceration. Vitals stable. Upon my examination, patient is extremely agitated complaining of pain to injury site. Patient appears under the influence. Exam remarkable for a 1 cm not actively bleeding wound to first left interdigital web. Deep structures appear intact. Patient has full active range of motion and is neurovascularly intact. Tetanus up-to-date, per patient. For pain control patient provided with ibuprofen and LET solution placed. LET solution in place for approximately 10 minutes prior to patient became increasingly agitated and verbally aggressive with nursing and hospital staff. Security was notified and present. Patient eloped from the ER to the waiting room then returned shortly after demanding further pain medication. I presented to patient to attempt to close wound with a suture. He again became verbally aggressive and agitated with staff. At that time Steri-Strips were placed over wound and patient immediately eloped from ER after Steri-Strip placement. Security escorting patient to waiting room. Case discussed with ED attending, Dr. Robertson. Undiagnosed new problem with uncertain prognosis? @ -No Drug Therapy requiring intensive monitoring for toxicity (Heparin, Nitro, Insulin, Cardizem)? @ -No Were any procedures done? @ -No Diagnosis/symptom? @ -Laceration Acute, or Chronic, or Acute on Chronic? @ -Acute Uncomplicated (without systemic symptoms) or Complicated (systemic symptoms)? @ -Uncomplicated Side effects of treatment? @ -No Exacerbation, Progression, or Severe Exacerbation? @ -No Poses a threat to life or bodily function? How? (Chest pain, [place], [place], pneumonia, PE, COPD, DKA, ARF, appy, cholecystitis, CVA, Diverticulitis, Homicidal, Suicidal, threat to staff... and all critical care pts) @ -No Disposition Clinical Impression: Laceration Disposition: HOME SELF-CARE Condition: Stable Is patient prescribed a controlled substance at d/c from ED?: No Referrals: None,Stated [Primary Care Provider] - 1-2 days Time of Disposition: 18:25
[2025-02-07] MEDS: IBUPROFEN 600 MG TAB PO STA (17:53)
[2025-02-07] MEDS: LIDOCAINE/EPINEPHR/TETRACAINE 5 ML BOTTLE TOPICAL ONE (17:54)
== END 2025-02-07 19:39 | disposition home or self-care (01) ==
LOC: EC 17:25
DX: S61.412A Laceration without foreign body of left hand, initial encounter (principal); F17.200 Nicotine dependence, unspecified, uncomplicated; W26.8XXA Contact with other sharp object(s), not elsewhere classified, initial encounter
CPT/HCPCS: 99283